=== PATIENT | female | born 1955 | race Caucasian/White ===

== ENCOUNTER 2016-10-28 13:55 | Inpatient (IN) | payer OTHER, MEDICARE ==
[~2016-10-28] VITALS: Ht 157.5 cm; Wt 85.1 kg
[2016-10-28 17:07] VITALS: BP 192/66; PULSE 82; TEMP 97.8
[2016-10-28 17:10] VITALS: BP 192/66; PULSE 82; TEMP 97.8
[2016-10-28] MEDS ORDERED: TYLENOL 325MG325 MG PO (17:22)
[2016-10-28] MEDS ORDERED: HCTZ 25MG TAB25 MG PO (17:26)
[2016-10-28] MEDS ORDERED: COREG 6.256.25 MG/TA PO (17:27)
[2016-10-28] MEDS ORDERED: LEVEMIR FLEX100 U/ML SQ (17:27)
[2016-10-28] MEDS ORDERED: PROTONIX 40MG T40 MG PO (17:29)
[2016-10-28] MEDS ORDERED: ZOCOR 40MG40 MG PO (17:29)
[2016-10-28] MEDS ORDERED: DEMADEX 20MG20 M1 PO (17:30)
[2016-10-28] MEDS ORDERED: KLOR-CON 1010 MEQ PO (17:31)
[2016-10-28] MEDS ORDERED: ULTRAM 50MG TAB50 MG PO (17:31)
[2016-10-28] MEDS ORDERED: ZESTRIL 10MG10 MG PO (17:32)
[2016-10-28] MEDS ORDERED: LOVENOX 4040 MG/0.4 SQ (17:33)
[2016-10-28] MEDS ORDERED: ASPIRIN 81M81 MG/TA2 PO (17:34)
[2016-10-28] MEDS ORDERED: OMEGA 31000 MG PO (17:34)
[2016-10-28] MEDS ORDERED: ALDACTONE 25MG25 M1 PO (17:35)
[2016-10-28] MEDS ORDERED: VITAMIN D 1001000 IU PO (17:36)
[2016-10-28] MEDS ORDERED: VITAMIN C500 MG PO (17:36)
[2016-10-28] MEDS ORDERED: HUMALOG100 U/ML SQ (17:38)
[2016-10-28] MEDS ORDERED: TRIPLE ANTIBIOTI1 TU TP (17:39)
[2016-10-28] MEDS ORDERED: PROBIOTIC-MAJOR PO (17:39)
[2016-10-28 22:18] VITALS: BP 170/61; PULSE 79; TEMP 98.1
[2016-10-29] VITALS (12 sets, daily range): BP systolic 129–179; BP diastolic 52–99; PULSE 78–99; TEMP 97.8–99.2
[2016-10-29 06:46] LABS: BASO % 0.3 % (0.0-2.0); EOS # 0.1 (0.0-0.7); EOS % 1.1 % (0-4.0); GRAN # 10.3 (1.4-6.5); GRAN % 82.9 % (42.2-75.2); LYMPH # 1.1 (1.2-3.4); LYMPH % 8.6 % (20.0-51.0); MEAN CELL VOLUME 90 fl (80.0-100.0); MEAN CORPUSCULAR HGB CONC 34 g/dl (33.0-37.0); MEAN PLATELET VOLUME 10.1 fl (7.4-10.4); MONO # 0.8 (0.1-0.6); MONO % 6.6 % (1.7-9.3); PLATELET COUNT 347 K/mm3 (130-400); RED BLOOD COUNT 3.33 M/mm3 (4.10-5.30); REDCELL DISTRIBUTION WIDTH-CV 11.4 % (11.5-14.5); WHITE BLOOD COUNT 12.4 K/mm3 (4.8-10.8)
[2016-10-29 06:47] LABS: HEMATOCRIT 29.8 % (37.0-47.0); HEMOGLOBIN 10.1 g/dl (12.5-16.0); MEAN CORPUSCULAR HEMOGLOBIN 30 pg (27.0-31.0)
[2016-10-29 07:00] LABS: INR 1.3 (0.8-3.0); PROTHROMBIN TIME 14.1 SECONDS (9.7-12.8)
[2016-10-29 07:14] LABS: ADJUSTED CALCIUM 9.6 mg/dL (8.4-10.2); ALBUMIN 3.2 gm/dL (3.5-5.0); BILIRUBIN,TOTAL 0.5 mg/dL (0.0-1.0); CREATININE, serum 1.21 mg/dL (0.52-1.25); POTASSIUM 3.5 mmol/L (3.4-5.0); TOTAL PROTEIN 7.6 gm/dL (6.4-8.2)
[2016-10-30] VITALS (7 sets, daily range): BP systolic 122–168; BP diastolic 42–93; PULSE 75–91; TEMP 97.5–98.2
[2016-10-30 09:45] LABS: CREATININE, serum 1.29 mg/dL (0.52-1.25)
[2016-10-31 06:07] VITALS: BP 129/51; PULSE 79; TEMP 98
[2016-10-31 08:11] VITALS: BP 188/65; PULSE 79; TEMP 97.9
[2016-10-31 11:12] LABS: BASO % 0.3 % (0.0-2.0); EOS # 0.2 (0.0-0.7); EOS % 1.1 % (0-4.0); GRAN # 12.1 (1.4-6.5); LYMPH # 1.1 (1.2-3.4); LYMPH % 7.4 % (20.0-51.0); MEAN CELL VOLUME 89 fl (80.0-100.0); MEAN CORPUSCULAR HGB CONC 34 g/dl (33.0-37.0); MEAN PLATELET VOLUME 9.7 fl (7.4-10.4); MONO # 0.8 (0.1-0.6); MONO % 5.6 % (1.7-9.3); PLATELET COUNT 357 K/mm3 (130-400); REDCELL DISTRIBUTION WIDTH-CV 11.4 % (11.5-14.5); WHITE BLOOD COUNT 14.2 K/mm3 (4.8-10.8)
[2016-10-31 11:13] LABS: HEMATOCRIT 27.5 % (37.0-47.0); HEMOGLOBIN 9.3 g/dl (12.5-16.0); MEAN CORPUSCULAR HEMOGLOBIN 30 pg (27.0-31.0)
[2016-10-31 11:33] LABS: CALCIUM 8.5 mg/dL (8.4-10.2); CREATININE, serum 2.19 mg/dL (0.52-1.25); POTASSIUM 3.5 mmol/L (3.4-5.0)
[2016-10-31 13:13] VITALS: BP 134/49; PULSE 80; TEMP 97.8
[2016-10-31 17:19] VITALS: BP 178/63; PULSE 76; TEMP 98.7
[2016-10-31 21:47] VITALS: BP 161/57; PULSE 84; TEMP 97.6
[2016-10-31 23:05] LABS: CREATININE, serum 2.26 mg/dL (0.52-1.25)
[2016-10-31 23:18] LABS: FRACTIONAL EXCRETION OF NA+ 2.2 %
[2016-10-31 23:38] LABS: PH 5 (5-8); URINE APPEARANCE Hazy; URINE BACTERIA Rare /hpf; URINE BILIRUBIN Negative (NEGATIVE); URINE BLOOD Negative (NEGATIVE); URINE COLOR Yellow; URINE GLUCOSE Negative (NEGATIVE); URINE KETONE Negative (NEGATIVE); URINE UROBILINOGEN Negative (NEGATIVE)
[2016-11-01 05:46] VITALS: BP 172/59; PULSE 88; TEMP 98.1
[2016-11-01 08:09] LABS: CALCIUM 8.5 mg/dL (8.4-10.2); CREATININE, serum 2.14 mg/dL (0.52-1.25); POTASSIUM 3.5 mmol/L (3.4-5.0)
[2016-11-01 08:47] VITALS: BP 155/55; PULSE 85; TEMP 97.9
[2016-11-01 10:27] VITALS: BP 176/62; PULSE 89; TEMP 97.8
[2016-11-01 13:30] VITALS: BP 147/44; PULSE 85; TEMP 98.2
[2016-11-01 17:10] LABS: PROT-CREAT RATIO, URINE 0.3 (())
[2016-11-01 17:22] VITALS: BP 190/65; PULSE 88; TEMP 98
[2016-11-01 20:49] VITALS: BP 151/44; PULSE 86; TEMP 98.5
[2016-11-02 01:08] VITALS: BP 158/44
[2016-11-02 05:44] VITALS: BP 185/60; PULSE 80; TEMP 98
[2016-11-02 06:27] LABS: CALCIUM 8.5 mg/dL (8.4-10.2); CREATININE, serum 1.99 mg/dL (0.52-1.25); POTASSIUM 3.1 mmol/L (3.4-5.0)
[2016-11-02 09:28] VITALS: BP 154/49; PULSE 85; TEMP 97.9
[2016-11-02 12:33] LABS: BASO % 0.2 % (0.0-2.0); EOS # 0.2 (0.0-0.7); EOS % 1.7 % (0-4.0); GRAN % 79.3 % (42.2-75.2); LYMPH # 1.2 (1.2-3.4); LYMPH % 11.5 % (20.0-51.0); MEAN CELL VOLUME 87 fl (80.0-100.0); MEAN CORPUSCULAR HGB CONC 34 g/dl (33.0-37.0); MEAN PLATELET VOLUME 9.4 fl (7.4-10.4); MONO # 0.7 (0.1-0.6); MONO % 6.9 % (1.7-9.3); PLATELET COUNT 350 K/mm3 (130-400); RED BLOOD COUNT 2.94 M/mm3 (4.10-5.30); REDCELL DISTRIBUTION WIDTH-CV 11.6 % (11.5-14.5); WHITE BLOOD COUNT 10.1 K/mm3 (4.8-10.8)
[2016-11-02 12:34] LABS: HEMATOCRIT 25.7 % (37.0-47.0); HEMOGLOBIN 8.8 g/dl (12.5-16.0); MEAN CORPUSCULAR HEMOGLOBIN 30 pg (27.0-31.0)
[2016-11-02 13:23] VITALS: BP 178/54; PULSE 85; TEMP 98.1
[2016-11-02 17:08] VITALS: BP 176/59; PULSE 81; TEMP 98.2
[2016-11-02 22:36] VITALS: BP 139/52; PULSE 85; TEMP 98.6
[2016-11-03 02:29] VITALS: BP 136/57; PULSE 58; TEMP 98.4
[2016-11-03 05:59] VITALS: BP 174/65; PULSE 84; TEMP 97.4
[2016-11-03 08:08] LABS: CALCIUM 8.3 mg/dL (8.4-10.2); CREATININE, serum 1.77 mg/dL (0.52-1.25); POTASSIUM 3.1 mmol/L (3.4-5.0)
[2016-11-03] MEDS ORDERED: ASPI325T6 PO (11:53)
[2016-11-03] MEDS ORDERED: REGLAN 10MG10 MG/TAB PO (11:53)
[2016-11-03] MEDS ORDERED: PLAVIX 75MG TAB75 MG PO (11:53)
[2016-11-03 12:05] VITALS: BP 182/66; PULSE 78; TEMP 98.9
[2016-11-03] MEDS ORDERED: AMOXICILLIN 50500 MG PO (12:07)
== END 2016-11-03 13:45 | disposition home or self-care (01) | DRG 253 ==
LOC: MEDICAL 13:55 → SURG 16:57
PROVIDERS: Internal Medicine; Internal Medicine Nephrology; Radiology Diagnostic Radiology
PROC: 047K3DZ Dilation of Right Femoral Artery with Intraluminal Device, Percutaneous Approach (ICD-10-PCS; principal; 2016-10-29)
PROC: 047K3ZZ Dilation of Right Femoral Artery, Percutaneous Approach (ICD-10-PCS; 2016-10-29)
PROC: B40G1ZZ Plain Radiography of Left Lower Extremity Arteries using Low Osmolar Contrast (ICD-10-PCS; 2016-10-29)
PROC: B40F1ZZ Plain Radiography of Right Lower Extremity Arteries using Low Osmolar Contrast (ICD-10-PCS; 2016-10-29)
DX: I70.234 Atherosclerosis of native arteries of right leg with ulceration of heel and midfoot (principal); I70.92 Chronic total occlusion of artery of the extremities; L03.115 Cellulitis of right lower limb; N17.9 Acute kidney failure, unspecified; I50.32 Chronic diastolic (congestive) heart failure; E87.1 Hypo-osmolality and hyponatremia; T50.8X5A Adverse effect of diagnostic agents, initial encounter; E11.621 Type 2 diabetes mellitus with foot ulcer; L97.419 Non-pressure chronic ulcer of right heel and midfoot with unspecified severity; B95.1 Streptococcus, group B, as the cause of diseases classified elsewhere; E11.43 Type 2 diabetes mellitus with diabetic autonomic (poly)neuropathy; K31.84 Gastroparesis; E11.65 Type 2 diabetes mellitus with hyperglycemia; I25.5 Ischemic cardiomyopathy; Z95.0 Presence of cardiac pacemaker; I25.10 Atherosclerotic heart disease of native coronary artery without angina pectoris; D64.9 Anemia, unspecified
CPT/HCPCS: 99223-AI; 99232-AI; 99233-AI; 99239; C1725; C1769; C1876; C1887; C1894; J0360; J1170; J1644; J1650; J1815; J2250; J2405; J2543; J2550; J2765; J3010; J3370; J7030; J7050; Q9967

== ENCOUNTER 2016-11-27 06:52 | Day surgery (SDC) | payer OTHER, MEDICARE ==
[2016-11-27] VITALS (15 sets, daily range): BP systolic 137–200; BP diastolic 70–96; PULSE 79–95; TEMP 97.6
[~2016-11-27] VITALS: Ht 157.6 cm; Wt 79.0 kg
[~2016-11-27 06:52] MED LIST: ALDACTONE 25MG25 M1 PO; AMOXICILLIN 50500 MG PO; ASPI325T6 PO; ASPIRIN 81M81 MG/TA2 PO; COREG 6.256.25 MG/TA PO; DEMADEX 20MG20 M1 PO; HCTZ 25MG TAB25 MG PO; HUMALOG100 U/ML SQ; KLOR-CON 1010 MEQ PO; LEVEMIR FLEX100 U/ML SQ; LOVENOX 4040 MG/0.4 SQ; OMEGA 31000 MG PO; PLAVIX 75MG TAB75 MG PO; PROBIOTIC-MAJOR PO; PROTONIX 40MG T40 MG PO; REGLAN 10MG10 MG/TAB PO; TRIPLE ANTIBIOTI1 TU TP; TYLENOL 325MG325 MG PO; ULTRAM 50MG TAB50 MG PO; VITAMIN C500 MG PO; VITAMIN D 1001000 IU PO; ZESTRIL 10MG10 MG PO; ZOCOR 40MG40 MG PO
[2016-11-27 08:03] LABS: MEAN CELL VOLUME 88 fl (80.0-100.0); MEAN CORPUSCULAR HGB CONC 34 g/dl (33.0-37.0); MEAN PLATELET VOLUME 10.6 fl (7.4-10.4); PLATELET COUNT 288 K/mm3 (130-400); RED BLOOD COUNT 3.61 M/mm3 (4.10-5.30); REDCELL DISTRIBUTION WIDTH-CV 12.8 % (11.5-14.5); WHITE BLOOD COUNT 7.5 K/mm3 (4.8-10.8)
[2016-11-27 08:04] LABS: HEMATOCRIT 31.8 % (37.0-47.0); HEMOGLOBIN 10.8 g/dl (12.5-16.0); MEAN CORPUSCULAR HEMOGLOBIN 30 pg (27.0-31.0)
[2016-11-27 08:11] LABS: INR 1.1 (0.8-3.0); PROTHROMBIN TIME 12.3 SECONDS (9.7-12.8)
[2016-11-27 08:21] LABS: CREATININE, serum 1.02 mg/dL (0.52-1.25)
== END 2016-11-27 19:28 | disposition home or self-care (01) ==
LOC: EUO 06:52 → COL.RAD 07:00 → EUO 19:28
PROVIDERS: Radiology Diagnostic Radiology
DX: I77.1 Stricture of artery (principal); E11.622 Type 2 diabetes mellitus with other skin ulcer; L97.219 Non-pressure chronic ulcer of right calf with unspecified severity; Z79.84 Long term (current) use of oral hypoglycemic drugs; Z79.4 Long term (current) use of insulin; I25.10 Atherosclerotic heart disease of native coronary artery without angina pectoris; Z95.5 Presence of coronary angioplasty implant and graft; I27.2 Other secondary pulmonary hypertension; I10 Essential (primary) hypertension
CPT/HCPCS: C1725; C1769; C1894; J2250; J2405; J3010; J7120; Q9967